=== PATIENT | female | born 2000 | race Caucasian/White ===

== ENCOUNTER 2018-06-05 18:33 | Emergency (ER) | payer OTHER ==
--- NOTE | 2018-06-05 19:27 | EDPHY ---
H & P Time Seen by Provider: 06/05/18 19:15 HPI/ROS: CHIEF COMPLAINT: Left flank pain HISTORY OF PRESENT ILLNESS: The patient is a 18-year-old female who presents emergency department ongoing left flank pain. Patient states she has had pain for 2 days. She was seen in urgent care yesterday. There she had a at x-ray which was unremarkable. She stated that she had a positive urine test and was treated with cephalexin. She had a "red cells" in her urine. They told that she may have had a kidney stone that passed. The patient states that she has had ongoing flank pain last evening. It is waxing and waning. Her pain is currently slightly better. She has had no nausea or vomiting. No dysuria frequency. No visible hematuria. Patient has taken 3 doses of Keflex. The patient has implanted control and denies . REVIEW OF SYSTEMS: 10 systems were reveiwed and are negative with the exception of the elements mentioned in the history of present illness. Past Medical/Surgical History: Asthma Social history: Patient is from [facility]. She does not smoke. Smoking Status: Light smoker Physical Exam: 37.1, 124/89, 84, 16, 99% on room air GENERAL: Well-appearing, in no acute distress, alert. HEENT: Eyes normal to inspection, normal pharynx, no signs of dehydration. NECK: Normal, supple. RESPIRATORY: Clear to auscultation bilaterally, no rales, rhonchi or wheezing. CVS: Regular rate and rhythm, no rubs, murmurs, or gallops. ABDOMEN: Soft, nontender, nondistended, no organomegaly. Benign BACK: Normal to inspection, no CVA tenderness. Normal SKIN: Normal color, no rash, warm, dry. No pallor. EXTREMITIES: No pedal edema, no calf tenderness, no Homans sign or cords, no joint swelling. NEURO/PSYCH: Alert and oriented, normal mood and affect, normal motor sensory exam. Constitutional: Initial Vital Signs Temperature (C) 37.1 C 06/05/18 18:50 Heart Rate 84 06/05/18 18:50 Respiratory Rate 16 06/05/18 18:50 Blood Pressure 124/89 H 06/05/18 18:50 O2 Sat (%) 99 06/05/18 18:50 O2 Delivery Mode Room Air Allergies/Adverse Reactions: No Known Allergies Allergy (Unverified 06/05/18 18:49) Home Medications: Medication Instructions Recorded Cephalexin 06/05/18 Ondansetron Odt [Zofran Odt 4 mg 4 mg PO Q4PRN PRN #7 tab 06/05/18 (*)] Salbutamol Inhaler 06/05/18 Tamsulosin HCl [Flomax] 0.4 mg PO DAILY #4 cap 06/05/18 oxyCODONE/APAP 5/325 [Percocet 1 - 2 tab PO Q4PRN PRN #11 tab 06/05/18 5/325 (*)] Medical Decision Making ED Course/Re-evaluation: In the emergency department I discussed possible etiologies with the patient. I answered all her questions. IV was placed. Laboratory studies and urine were obtained. CT of the abdomen pelvis without contrast was ordered UA: Patient has positive leuk est. White count is 9.2. Hematocrit 44. Platelets are 352. Chemistry panel is unremarkable. CT of the abdomen pelvis: Please refer the dictated report by Dr. Hicks. Patient has a 2 mm distal left ureteral stone. I discussed the results with the patient. I answered all her questions. Patient was given Flomax orally. She was given a take-home pack of Percocet and Zofran. She was given a prescription of Percocet. She will continue her Keflex until completion. The patient does not appear septic or toxic. Differential Diagnosis: My differential includes but is not limited to urinary tract infection, pyelonephritis, bacteremia, sepsis, kidney stone, renal insufficiency, renal failure, diverticulitis, small-bowel obstruction, , ectopic - Data Points Laboratory Results: 06/05/18 19:48 POC Sodium 146 mEq/L H mEq/L (135-145) POC Potassium 3.7 mEq/L mEq/L (3.3-5.0) POC Chloride 105.0 mEq/L mEq/L (97-110) POC Total CO2 26 mEq/L mEq/L (22-31) POC BUN 11 mg/dL mg/dL (7-23) POC Creatinine 1.1 mg/dL H mg/dL (0.6-1.0) POC Glucose 78 mg/dL mg/dL (70-100) POC Calcium 9.7 mg/dL mg/dL (8.5-10.4) Point of Care Test Results: CBC CBC Collection Date 06/05/18 CBC Collection Time 19:40 WBC 9.21 RBC 4.84 HGB 14.6 HCT 44.0 PLT 352 Neut # 4.65 Neut 50.4 LYMPH # 3.61 LYMPH 39.2 MCV 90.9 Chemistry 06/05/18 19:48 POC Sodium 146 mEq/L H mEq/L (135-145) POC Potassium 3.7 mEq/L mEq/L (3.3-5.0) POC Chloride 105.0 mEq/L mEq/L (97-110) POC Total CO2 26 mEq/L mEq/L (22-31) POC BUN 11 mg/dL mg/dL (7-23) POC Creatinine 1.1 mg/dL H mg/dL (0.6-1.0) POC Glucose 78 mg/dL mg/dL (70-100) POC Calcium 9.7 mg/dL mg/dL (8.5-10.4) Urine Collection Date 06/05/18 Collection Time 19:20 HCG Results Negative Urine Dip Collection Date 06/05/18 Collection Time 19:00 Specific Elliott (1.002-1.030) 1.025 PH (5.0-7.5) 5.5 Leukocytes (Negative) 1+ Nitrites (Negative) Negative Protein (Negative) Negative Glucose (Negative) Negative Ketones (Negative) Negative Urobilnogen (0.2-1.0 EU) 0.2 Bilirubin (Negative) Negative Blood (Negative) Trace Departure - Departure Disposition: Home, Routine, Self-Care Clinical Impression: Flank pain, acute, Kidney stone Condition: Good Instructions: Flank Pain (ED), Kidney Stones (ED) Additional Instructions: You were noted to have a 2 mm kidney stone on CT. Continue to take her antibiotics until completion. You been given a prescription of both pain medication and nausea medicine. You have also been given a medication to help passed your kidney stone. Call to make an appointment with Dr. Arrington from Urology. You have also been given contact information for a primary care physician. Referrals: Rosa Steven MD [Medical Doctor] - 5-7 days, call for appt. Carlyle Arrington MD [Medical Doctor] - 5-7 days, call for appt. Prescriptions: Ondansetron Odt [Zofran Odt 4 mg (*)] 4 mg PO Q4PRN PRN #7 tab PRN Reason: For Nausea & Vomiting oxyCODONE/APAP 5/325 [Percocet 5/325 (*)] 1 - 2 tab PO Q4PRN PRN #11 tab PRN Reason: For Moderate To Severe Pain Tamsulosin HCl [Flomax] 0.4 mg PO DAILY #4 cap
[2018-06-05] MEDS ORDERED: ONDANSETRON 4MG PREPACK#2 BTL TAKEHOME ONE (20:25)
[2018-06-05] MEDS ORDERED: TAMSULOSIN HCL 0.4 MG CAP PO ONE (20:25)
[2018-06-05] MEDS ORDERED: OXYCODONE/APAP 5/325MG PREPACK#4 BTL TAKEHOME ONE (20:25)
[2018-06-05 20:58] VITALS: BP 106/68
== END 2018-06-05 20:35 | disposition home or self-care (01) ==
LOC: CED 18:33
DX: N20.1 Calculus of ureter (principal); N13.9 Obstructive and reflux uropathy, unspecified
CPT/HCPCS: 74176-PO; 80048-ER; 99284-ER

== ENCOUNTER 2018-06-06 12:14 | Emergency (ER) | payer OTHER ==
--- NOTE | 2018-06-06 12:26 | EDPHY ---
H & P Stated Complaint: l flank pain dx kidney stones/nauseated /pain meds not helping Time Seen by Provider: 06/06/18 12:25 - Personal History LMP (Females 10-55): Extended Cycle BCP/Inj Current Tetanus Diphtheria and Acellular Pertussis (TDAP): Yes Tetanus Vaccine Date: 2016 - Medical/Surgical History Hx Asthma: Yes Hx Chronic Respiratory Disease: No Hx Diabetes: No Hx Cardiac Disease: No Hx Renal Disease: No Hx Cirrhosis: No Hx Alcoholism: No Hx HIV/AIDS: No Hx Splenectomy or Spleen Trauma: No Other PMH: Asthma - Social History Smoking Status: Light smoker Constitutional: Initial Vital Signs Temperature (C) 36.5 C 06/06/18 12:18 Heart Rate 64 06/06/18 12:18 Respiratory Rate 18 06/06/18 12:18 Blood Pressure 119/78 06/06/18 12:18 O2 Sat (%) 98 06/06/18 12:18 O2 Delivery Mode Room Air Allergies/Adverse Reactions: No Known Allergies Allergy (Verified 06/06/18 12:14) Home Medications: Medication Instructions Recorded Ondansetron Odt [Zofran Odt 4 mg 4 mg PO Q4PRN PRN #7 tab 06/05/18 (*)] Salbutamol Inhaler 06/05/18 Tamsulosin HCl [Flomax] 0.4 mg PO DAILY #4 cap 06/05/18 oxyCODONE/APAP 5/325 [Percocet 1 - 2 tab PO Q4PRN PRN #11 tab 06/05/18 5/325 (*)] Cipro 06/06/18 Nexplanon 06/06/18 Ondansetron Odt [Zofran Odt 4 mg 4 mg PO Q4 PRN #10 tab 06/06/18 (RX)] Promethazine HCl [Phenergan 12.5mg 12.5 mg PO Q6-8PRN PRN #10 tablet 06/06/18 tab] Medical Decision Making ED Course/Re-evaluation: CHIEF COMPLAINT: Nausea HISTORY OF PRESENT ILLNESS: The patient is a 18 y/o female arriving with her employer complaining of severe nausea following [employer] use for kidney stone diagnosed yesterday. She developed left flank pain 3 days ago and went to urgent care for evaluation. She was treated with cephalexin for possible UTI. Symptoms persisted so she presented to [facility] yesterday for reevaluation. An abdominal CT showed a probable distal 2mm left ureteral calculus with minimal left obstructive uropathy. She was discharged with scripts for Percocet, Tamsulosin, and Zofran that she never filled and referral to urology for follow up. She also recent pre-packs of Percocet and Zofran, which she has been using for symptoms. Her pain is currently well controlled, but she feels extremely nauseated and has had trouble drinking water today. She is also continuing to take cephalexin for possible UTI. REVIEW OF SYSTEMS: A comprehensive 10 system review of systems is otherwise negative aside from elements mentioned in the history of present illness and medical decision making. PHYSICAL EXAM: HR, BP, O2 Sat, RR. Temp noted General Appearance: Alert, well hydrated, appropriate, and non-toxic appearing. Head: Atraumatic without scalp tenderness or obvious injury Eyes: Pupils equal, round, reactive to light and accommodation, EOMI, no trauma , no injection. Nose: Atraumatic, no rhinorrhea, clear. Throat: Mucus membranes moist. Neck: Supple, nontender, no lymphadenopathy. Respiratory: No retractions, no distress, no wheezes, and no accessory muscle use. Lungs are clear to auscultation bilaterally. Cardiovascular: Regular rate and rhythm, no murmurs, rubs, or gallops. Good capillary refill all extremities. Gastrointestinal: Abdomen is soft, nontender, non-distended, no masses, no rebound, no guarding, no peritoneal signs. Musculoskeletal: Normal active ROM of all extremities, atraumatic. Neurological: Alert, appropriate, and interactive. The patient has non-focal cranial nerves, motor, sensory, and cerebellar exam. Skin: No rashes, good turgor, no nodules on palpation. Past medical history: Asthma Past surgical history: Denies Family history: Noncontributory Social history: From [place]. 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 Nonsmoker. Prior medical records reviewed including [facility] visit yesterday 06/05/18 for kidney stones. DIAGNOSTICS/PROCEDURES/CRITICAL CARE TIME: Not indicated. DIFFERENTIAL DIAGNOSIS: The differential diagnosis for the patient's nausea and vomiting included but was not limited to side effect of opiate and antibiotic use, gastroenteritis, gastritis, appendicitis, and medication side effect. MEDICAL DECISION MAKING: This is a 18 y/o female who presents with what sounds like nausea due to narcotic use for recently diagnosed kidney stones. Her flank pain is currently well-controlled, but her nausea has been very disruptive today and she is unable to eat. Plan for IV and symptomatic management. 1gm IV Ceftriaxone, 12.5mg IV Phenergan, 30mg IV Toradol, 2L IV NS ordered. Patient is feeling completely better on reevaluation. Plan for discharge home with scripts for Phenergan and Zofran. Recommended discontinuing narcotics unless absolutely necessary as I feel this is the likely culprit for her nausea today. Follow up and return precautions discussed. She is comfortable with this plan. - Data Points Medications Given: Discontinued Medications Ceftriaxone Sodium/Dextrose (Rocephin 1 Gm (Premix)) 50 mls @ 100 mls/hr IV EDNOW ONE PRN Reason: Protocol Stop: 06/06/18 13:12 Last Admin: 06/06/18 12:48 Dose: 50 mls Sodium Chloride (Ns) 1,000 mls @ 0 mls/hr IV EDNOW ONE; Wide Open PRN Reason: Protocol Stop: 06/06/18 12:46 Last Admin: 06/06/18 12:48 Dose: 1,000 mls Sodium Chloride (Ns) 1,000 mls @ 0 mls/hr IV EDNOW ONE; Wide Open PRN Reason: Protocol Stop: 06/06/18 12:46 Last Admin: 06/06/18 12:53 Dose: Not Given Ketorolac Tromethamine (Toradol) 30 mg IVP EDNOW ONE Stop: 06/06/18 12:46 Last Admin: 06/06/18 12:49 Dose: 30 mg Promethazine HCl (Phenergan) 12.5 mg IVP ONCE ONE Stop: 06/06/18 12:42 Last Admin: 06/06/18 12:42 Dose: 12.5 mg Departure - Departure Disposition: Home, Routine, Self-Care Clinical Impression: Nausea Condition: Good Instructions: Acute Nausea and Vomiting (ED) Additional Instructions: 1. Discontinue Percocet unless you develop severe pain. Take 600mg ibuprofen every 8 hours as needed for pain over the next few days. 2. Use Zofran or Phenergan as prescribed if needed for nausea and vomiting. 3. Follow up with urologist as previously directed. 4. Return for worsening of condition. Referrals: Laz Ledesma DO [Doctor of Osteopathy] - As per Instructions Prescriptions: Ondansetron Odt [Zofran Odt 4 mg (RX)] 4 mg PO Q4 PRN #10 tab PRN Reason: Nausea/Vomiting, Use 1st Promethazine HCl [Phenergan 12.5mg tab] 12.5 mg PO Q6-8PRN PRN #10 tablet PRN Reason: Nausea/Vomiting, Use 1st Report Scribed for: Omid Marie Report Scribed by: Airam Lanier Date of Report: 06/06/18 Time of Report: 12:31
[2018-06-06] MEDS ORDERED: PROMETHAZINE HCL 25 MG/ML INJ ONE (12:35)
[2018-06-06] MEDS ORDERED: PROMETHAZINE HCL 25 MG/ML INJ IVP ONE (12:41)
[2018-06-06] MEDS ORDERED: NS 1,000 ML IV ONE (12:45)
[2018-06-06] MEDS ORDERED: KETOROLAC 30 MG/1 ML SDV IVP ONE (12:45)
[2018-06-06] MEDS: NS 1,000 ML IV ONE (12:48)
[2018-06-06 14:06] VITALS: BP 100/57
== END 2018-06-06 15:25 | disposition home or self-care (01) ==
DX: R11.0 Nausea (principal); E86.9 Volume depletion, unspecified
CPT/HCPCS: 96365; J0696; J1885; J2550